=== PATIENT | male | born 1950 | race Caucasian/White ===

== ENCOUNTER → 2016-05-19 | Outpatient (CLI) | payer MEDICARE, OTHER ==
[~2016-05-19] MED LIST: COQ-10100 MG PO; FLONASE 50 MCG/16 GM NOSE; INVOKAMET 150-1 EACH PO; LEVAQUIN500 MG PO; NIACIN SR 250250 MG PO; PERIDEX15 ML PO; TYLENOL WITH C1 EACH PO; VITAMIN E400 UNI2 PO
== END | disposition disaster alternative care site (69) ==
LOC: GRAD 05-17 11:00
DX: J32.4 Chronic pansinusitis (principal); H05.221 Edema of right orbit

== ENCOUNTER 2016-05-29 06:08 | Day surgery (SDC) | payer MEDICARE, OTHER ==
[~2016-05-29] VITALS: Ht 172.7 cm; Wt 104.8 kg
--- NOTE | ~2016-05-29 | OR ---
PATIENT'S NAME: NESS REYNOSO [facility] AGE: 65 Y [address] ROOM: [place] [id number] LOCATION: [facility] [place] ADMIT DATE: 05/29/2016 OR/Procedure Report DISCHARGE DATE: 05/29/2016 FAMILY PHYSICIAN: Ryan Root MD ATTENDING PHYSICIAN: William Hickman V SURGEON: William Hickman MD ART LIBRARIAN: DATE OF PROCEDURE: 05/29/2016 POSTOPERATIVE DIAGNOSIS: Chronic pansinusitis. POSTOPERATIVE DIAGNOSIS: Chronic pansinusitis. OPERATION/PROCEDURE: 1. Bilateral total endoscopic ethmoidectomy. 2. Bilateral endoscopic middle meatal antrostomies with biopsy of maxillary sinus tissue. 3. Bilateral frontal recess approach. 4. Right Farooq-Ketan. 5. Bilateral endoscopic sphenoidotomy. 6. Stealth image guidance. 7. Placement of PROPEL implant x3. ANESTHESIA: General endotracheal anesthesia. ESTIMATED BLOOD LOSS: Minimal. COMPLICATIONS: None. FINDINGS: The patient had complete opacification scarification of the maxillary sinus, right and left respectively. The patient did have inspissated mucus within the right maxillary sinus. Posterior anterior ethmoid sinuses right and left respectively. With gross purulence and colorful material. DESCRIPTION OF PROCEDURE: The patient was taken to the operating room, laid in supine position and underwent general endotracheal anesthesia. Head was rotated 180 degrees. The head was placed in upright position. Cocaine soaked nasal pledgets were placed within the nasal vestibule right and left respectively. [email or web address] image guidance reference frame placed over the forehead and this was calibrated. Cocaine-soaked pledgets were removed from the left nasal vestibule. The patient was prepped and draped in usual sterile fashion. The 0 degree rigid telescope was inserted within the left nasal vestibule with visualization of lateral nasal wall. Uncinate process was palpated and infiltrated with 1% lidocaine with epinephrine solution. Infundibulotomy PATIENT'S NAME: NESS REYNOSO [facility] AGE: 65 Y [address] ROOM: [place] [id number] LOCATION: [facility] [place] ADMIT DATE: 05/29/2016 OR/Procedure Report DISCHARGE DATE: 05/29/2016 FAMILY PHYSICIAN: yRan Root MD ATTENDING PHYSICIAN: William Hickman V incision performed with a sickle knife. Uncinate was taken down using a 4.0 microdebrider blade. The anterior ethmoid bulla was then fractured, it was noted to be per osteogenic hard firm. Anterior ethmoidectomy was then performed, carried along the inferior aspect of the middle turbinate. Skeletonizing the lamina papyracea. The grand lamella was infractured opened and into a posterior ethmoid cell with return of thick purulent material. This was suctioned. Skull base was identified. Dissection was then performed posterior to anterior to the level of frontal recess. Frontal recess was opened. Using an up-biter again with removing a significant amount per- osteogenic bone. Hemostasis was noted to be adequate. The posterior fontanelle was then palpated, opened using a double-ball Ingris ostium seeker, it was confirmed using an antral suction calibrated with stealth image guidance. This was opened, there was some thick material suctioned from the maxillary sinus. The mucosa was noted to be thick and inflamed. It was felt to have a good opening, no calcification was identified. Hemostasis was adequate. Attention was then turned to the right. Cocaine soaked pledgets removed from the right nasal vestibule. A 0-degree rigid telescope was inserted within the nasal vestibule. Visualization lateral nasal wall. The septum was deviated to the right. This was then reflected medially. The uncinate process. Palpated infiltrated with 1% lidocaine with epinephrine solution. Infundibulotomy incision was performed. Uncinate process removed using a 4.0 microdebrider blade. The anterior ethmoid bulla was infractured opened. There was noted to be significant per osteogenesis. The ethmoidectomy was performed carried along the inferior aspect of the middle turbinate, Skeletonizing the lamina papyracea. The frontal recess was able to be opened, this was confirmed using stealth image guidance and opened using up- biter forceps. Again the bone was noted to be thick and hard and inflamed. Dissection was then carried posteriorly, the grand lamella was opened, the sphenoid sinus was opened removing some thick inflamed mucosa. Posterior ethmoid cell was opened with significant purulent material. Dissection was then performed from posterior to anterior skeletonizing the roof of the ethmoid sinus. This was followed up to the frontal recess. Posterior fontanelle was then palpated. I was unable to open the posterior fontanelle secondary to large amount of thick scar tissue. Inferior turbinate was outfractured. Due to the pain and discomfort he was having on the right, it was elected to do a Farooq-Ketan to open into the maxillary sinus. The buccal gingival sulcus was infiltrated with 1% lidocaine with epinephrine solution. Mucosal incision was performed using a #15 blade. This was carried down to the periosteum. Periosteum was elevated anteriorly. The anterior wall of maxillary sinus was opened using a 4 mm osteotome. The anterior maxillary wall was significantly thickened. This was then taken down using the Kerrison approximately 1.5 to 2 cm circumferential opening was performed through the anterior maxillary wall. There was thickened mucosa. This was partially removed using the 4.0 microdebrider blade. The maxillary sinus was opened up, there was large amount of colorful material within the maxillary sinus with PATIENT'S NAME: NESS REYNOSO [facility] AGE: 65 Y [address] ROOM: [place] [id number] LOCATION: [facility] [place] ADMIT DATE: 05/29/2016 OR/Procedure Report DISCHARGE DATE: 05/29/2016 FAMILY PHYSICIAN: Ryan Root MD ATTENDING PHYSICIAN: William Hickman V significantly scarred fibrous maxillary sinus tissue, this was partially removed, sent for pathology. A middle meatal antrostomy was then performed with both intranasal as well as a Farooq-Ketan approach opening up a large maxillary antrostomy. A small Propel implant was then placed to the maxillary antrostomy through the Farooq-Ketan. Bactroban ointment was then placed within the maxillary sinus. The buccal gingival sulcus incision closed using a running interlocking 3-0 chromic suture. The scope was then placed back within the right nasal vestibule. PROPEL implant was placed between the middle turbinate and the lateral nasal wall and the ethmoid cavity was filled with Bactroban ointment. The scope was then placed within the left nasal vestibule. PROPEL implant placed on the left. Bactroban ointment was applied. The patient tolerated the procedure well. The patient was aroused, extubated, and discharged from the operating room to the recovery room in satisfactory condition. WILLIAM HICKMAN MD TVC/modl /[id number] d: 05/29/16 2339 t: 06/05/16 0734, OPERATIVE SUMMARY
[~2016-05-29 06:08] MED LIST changes: -LEVAQUIN500 MG PO; -PERIDEX15 ML PO; -TYLENOL WITH C1 EACH PO
[2016-05-29] MEDS ORDERED: TYLENOL WITH C1 EACH PO (11:13)
[2016-05-29] MEDS ORDERED: PERIDEX15 ML PO (11:14)
[2016-05-29] MEDS ORDERED: LEVAQUIN500 MG PO (11:15)
--- NOTE | 2016-05-29 17:44 | NUR ---
PATIENT DISMISSED TO HOME WITH PER PRIVATE CAR AT 1250. WHEELED TO EXIT IN WHEEL CHAIR. DISMISSAL INSTRUCTIONS REVIEWED WITH PATIENT AND PRIMARILY . EDUCATION REGARDING MEDICATIONS GIVEN. LAST DRUG TIMES FOR LEVAQUIN AND TYLENOL #3 NOTED. PATIENT INSTRUCTED TO NOTIFY MD OF SIGNS/SYMPTOMS OF INFECTION TO OPERATIVE SITE AND IV SITE. INSTRUCTED TO NOTIFY MD OF SYMPTOMS SUCH PUS, INCREASED DRAINAGE, DRAINAGE OF A LARGE AMOUNT OF CLEAR FLUID, EXCESSIVE TIREDNESS, EXCESSIVE BLEEDING FROM THE NOSE OR DOWN THE BACK OF THE THROAT, INCREASED PAIN NOT CONTROLLED WITH PAIN MEDS PRESCRIBED, CHANGES IN VISION, FEVER > 101, AND ANY OTHER QUESTIONS OR CONCERNS. PATIENT INSTRUCTED TO REST TODAY. KEEP HEAD ELEVATED AT LEAST 30 DEGREES. INSTRUCTED PATIENT ON NASAL IRRIGATION ORDERED. FOLLOW UP APPOINTMENT INFORMATION REVIEWED. PATIENT AND VERBALIZED FULL UNDERSTANDING OF DISMISSAL INSTRUCTIONS. JULES'S EDUCATION SHEETS GIVEN.
== END 2016-05-29 12:50 | disposition disaster alternative care site (69) ==
LOC: GMSU 06:08 → GSDC 06:08 → GPOC 07:00 → GSDC 12:50 → GPOC 13:00
PROC: 09TV4ZZ Resection of Left Ethmoid Sinus, Percutaneous Endoscopic Approach (ICD-10-PCS; principal; 2016-05-29)
PROC: 09TU4ZZ Resection of Right Ethmoid Sinus, Percutaneous Endoscopic Approach (ICD-10-PCS; 2016-05-29)
PROC: 099R4ZZ Drainage of Left Maxillary Sinus, Percutaneous Endoscopic Approach (ICD-10-PCS; 2016-05-29)
PROC: 099Q4ZZ Drainage of Right Maxillary Sinus, Percutaneous Endoscopic Approach (ICD-10-PCS; 2016-05-29)
PROC: 09CX4ZZ Extirpation of Matter from Left Sphenoid Sinus, Percutaneous Endoscopic Approach (ICD-10-PCS; 2016-05-29)
PROC: 09CW4ZZ Extirpation of Matter from Right Sphenoid Sinus, Percutaneous Endoscopic Approach (ICD-10-PCS; 2016-05-29)
PROC: 09QT4ZZ Repair Left Frontal Sinus, Percutaneous Endoscopic Approach (ICD-10-PCS; 2016-05-29)
PROC: 09QS4ZZ Repair Right Frontal Sinus, Percutaneous Endoscopic Approach (ICD-10-PCS; 2016-05-29)
PROC: 09BQ4ZZ Excision of Right Maxillary Sinus, Percutaneous Endoscopic Approach (ICD-10-PCS; 2016-05-29)
DX: J32.0 Chronic maxillary sinusitis (principal); J34.89 Other specified disorders of nose and nasal sinuses; G47.33 Obstructive sleep apnea (adult) (pediatric); E11.9 Type 2 diabetes mellitus without complications; E78.1 Pure hyperglyceridemia; M10.9 Gout, unspecified; I10 Essential (primary) hypertension; N28.9 Disorder of kidney and ureter, unspecified; Z79.82 Long term (current) use of aspirin; Z79.899 Other long term (current) drug therapy
CPT/HCPCS: A9270; C2625; J1100; J2001; J2250; J2405; J7030